=== PATIENT | female | born 1965 | race African-American/Black ===

== ENCOUNTER → 2016-09-15 | Outpatient (REF) | payer OTHER ==
[2016-09-15 12:03] LABS: ALBUMIN 4.1 GM/DL (3.2-5.2); ALBUMIN/GLOBULIN RATIO 0.98 (1.00-1.93); ALKALINE PHOSPHATASE 72 U/L (45-117); ALT/SGPT 42 U/L (12-78); ANION GAP 10 MEQ/L (8-16); AST/SGOT 36 U/L (15-37); BILIRUBIN,TOTAL 0.2 MG/DL (0.2-1.0); BLOOD UREA NITROGEN 17 MG/DL (7-18); CALCIUM LEVEL 9.1 MG/DL (8.5-10.1); CARBON DIOXIDE LEVEL 29 MEQ/L (21-32); CHLORIDE LEVEL 101 MEQ/L (98-107); GLOMERULAR FILTRATION RATE > 60.0 (>51); GLUCOSE, FASTING 118 MG/DL (70-105); POTASSIUM SERUM 3.9 MEQ/L (3.5-5.1); SODIUM LEVEL 140 MEQ/L (136-145); TOTAL PROTEIN 8.3 GM/DL (6.4-8.2)
[2016-09-17 00:08] LABS: %CD3+CD4+CD8+ 0.5 % (Not Estab.); %CD3+CD4+CD8- 20.9 % (Not Estab.); %CD3+CD4-CD8+ 46.1 % (Not Estab.); %CD3+CD4-CD8- 3.6 % (Not Estab.); ABS CD3+CD4+CD8+ 10 /uL (Not Estab.); ABS CD3+CD4+CD8- 418 /uL (Not Estab.); ABS CD3+CD4-CD8+ 922 /uL (Not Estab.); ABS CD3+CD4-CD8- 72 /uL (Not Estab.); CD4/CD8 NYSDOH RATIO 0.45 (Not Estab.); Eosinophils 1 % (.); HCT 38.5 % (34.0-46.6); HGB 12.3 g/dL (11.1-15.9); Monocytes 7 % (.); Neutrophils 48 % (.); WBC 4.6 x10E3/uL (3.4-10.8)
== END ==
LOC: M SFHCPLAZ 10:01
PROVIDERS: ATTEND Internal Medicine Infectious Disease
DX: B20 Human immunodeficiency virus [HIV] disease (principal); E11.9 Type 2 diabetes mellitus without complications

== ENCOUNTER → 2016-12-28 | Outpatient (REF) | payer OTHER ==
[~2016-12-28] MED LIST: DESC1TAB PO; IBUP200C PO; METF500T PO; RALT40TA PO
[2016-12-28 13:27] LABS: ALBUMIN/GLOBULIN RATIO 1.03 (1.00-1.93); ALKALINE PHOSPHATASE 65 U/L (45-117); ALT/SGPT 22 U/L (12-78); ANION GAP 5 MEQ/L (8-16); AST/SGOT 28 U/L (15-37); BILIRUBIN,TOTAL 0.3 MG/DL (0.2-1.0); BLOOD UREA NITROGEN 16 MG/DL (7-18); CALCIUM LEVEL 8.4 MG/DL (8.5-10.1); CARBON DIOXIDE LEVEL 30 MEQ/L (21-32); CHLORIDE LEVEL 104 MEQ/L (98-107); CREATININE FOR GFR 0.66 MG/DL (0.55-1.02); GLOMERULAR FILTRATION RATE > 60.0 (>51); GLUCOSE, FASTING 115 MG/DL (70-105); SODIUM LEVEL 139 MEQ/L (136-145); TOTAL PROTEIN 7.9 GM/DL (6.4-8.2)
[2016-12-30 00:07] LABS: %CD3+CD4+CD8+ 0.9 % (Not Estab.); %CD3+CD4+CD8- 24.7 % (Not Estab.); %CD3+CD4-CD8+ 39.5 % (Not Estab.); %CD3+CD4-CD8- 2.7 % (Not Estab.); ABS CD3+CD4+CD8+ 13 /uL (Not Estab.); ABS CD3+CD4+CD8- 346 /uL (Not Estab.); ABS CD3+CD4-CD8+ 553 /uL (Not Estab.); ABS CD3+CD4-CD8- 38 /uL (Not Estab.); CD4/CD8 NYSDOH RATIO 0.63 (Not Estab.); Eosinophils 1 % (.); HCT 36.5 % (34.0-46.6); HGB 12.5 g/dL (11.1-15.9); Monocytes 6 % (.); Neutrophils 62 % (.); WBC 4.6 x10E3/uL (3.4-10.8)
== END ==
LOC: M LABDRAW1 12:42
PROVIDERS: ATTEND Internal Medicine Infectious Disease
DX: E11.9 Type 2 diabetes mellitus without complications (principal); B20 Human immunodeficiency virus [HIV] disease

== ENCOUNTER 2017-01-06 05:52 | Day surgery (SDC) | payer OTHER ==
[~2017-01-06] VITALS: Ht 157.5 cm; Wt 60.8 kg
[2017-01-06] MEDS ORDERED: LR 1,000 ML IV SCH ×3 (06:00→11:30)
[2017-01-06 06:48] LABS: CONTROL LINE HCG INT CTR LINE PRESENT
[2017-01-06] MEDS ORDERED: BUPIVACAINE HCL 0.25% 30 ML VIAL As Ordered ONE (07:13)
[2017-01-06] MEDS ORDERED: METHYLENE BLUE 0.5% (5MG/ML) 10 ML AMP (PROVAYBLUE)(Q9968 PER 1MG) As Ordered ONE (07:13)
[2017-01-06] MEDS ORDERED: fentaNYL 250 MCG/5 ML INJECTION (J3010) As Ordered ONE (08:02)
[2017-01-06] MEDS ORDERED: MIDAZOLAM INJ 2 MG/2 ML VIAL (J2250) As Ordered ONE (08:02)
[2017-01-06] MEDS ORDERED: METOCLOPRAMIDE INJ 10MG/2ML VIAL (J2765) As Ordered ONE (08:02)
[2017-01-06] MEDS ORDERED: LIDOCAINE 2% INJ 100 MG/5 ML SDV (FOR ANES.) As Ordered ONE (08:03)
[2017-01-06] MEDS ORDERED: ROCURONIUM BROMIDE 50 MG/5 ML VIAL As Ordered ONE (08:03)
[2017-01-06] MEDS ORDERED: PHENYLephrine HCL 500 MCG/5 ML (100MCG/ML) SYRINGE (J2370) As Ordered ONE (08:03)
[2017-01-06] MEDS ORDERED: GLYCOPYRROLATE INJ 0.2 MG/ML 2 ML VIAL As Ordered ONE ×2 (08:04→08:05)
[2017-01-06] MEDS ORDERED: PROPOFOL 200 MG/20 ML VIAL As Ordered ONE (08:04)
[2017-01-06] MEDS ORDERED: NEOSTIGMINE 1MG/ML 5 ML SYRINGE (J2710) As Ordered ONE (08:04)
[2017-01-06] MEDS ORDERED: KETOROLAC 60 MG/2 ML VIAL (J1885) As Ordered ONE (08:05)
[2017-01-06] MEDS ORDERED: ONDANSETRON 4MG/2ML VIAL (J2405) As Ordered ONE (08:05)
[2017-01-06] MEDS ORDERED: HYDROmorphone HCL 2 MG/ML 1ML VIAL (J1170) As Ordered ONE (08:10)
[2017-01-06] MEDS: DESCOVY PO SCH (09:00)
[2017-01-06] MEDS ORDERED: PERCOCET 5MG/325MG TAB PO PRN ×3 (11:15→11:30)
[2017-01-06] MEDS ORDERED: MEPERIDINE INJ 25 MG/ML VIAL (J2175) IV PRN (11:15)
[2017-01-06] MEDS ORDERED: KETOROLAC 30 MG/ML VIAL (J1885) IV PRN (11:15)
[2017-01-06] MEDS ORDERED: fentaNYL 100 MCG/2 ML INJECTION (J3010) IV PRN (11:15)
[2017-01-06] MEDS ORDERED: METOCLOPRAMIDE INJ 10MG/2ML VIAL (J2765) IV PRN (11:15)
[2017-01-06] MEDS ORDERED: ONDANSETRON 4MG/2ML VIAL (J2405) IV PRN (11:15)
[2017-01-06] MEDS ORDERED: HYDROmorphone HCL 1 MG/ML SYRINGE (J1170) IV PRN (11:15)
[2017-01-06] MEDS ORDERED: diphenhydrAMINE INJ 50MG/ML VIAL (J1200) IV PRN (11:15)
[2017-01-06] MEDS ORDERED: zolPIDEM TARTRATE 10MG TAB PO PRN (11:30)
[2017-01-06] MEDS ORDERED: MORPHINE 4 MG/ML 1ML SYRINGE IV PRN (11:30)
[2017-01-06] MEDS ORDERED: PROMETHAZINE INJ 25 MG/ML VIAL (J2550) IV PRN (11:30)
[2017-01-06 13:30] VITALS: BP 144/80
[2017-01-06 14:00] VITALS: BP 130/76
[2017-01-06] MEDS: KETOROLAC 30 MG/ML VIAL (J1885) IV SCH ×2 (14:19→20:53)
[2017-01-06 15:00] VITALS: BP 137/75
[2017-01-06 16:00] VITALS: BP 149/75
[2017-01-06 18:00] VITALS: BP 146/87
[2017-01-06] MEDS: metFORMIN (GLUCOPHAGE) 500 MG TAB PO SCH (18:12)
[2017-01-06] MEDS: RALTEGRAVIR 400 MG TAB (ISENTRESS) PO SCH (20:53)
[2017-01-06] MEDS ORDERED: RALTEGRAVIR 400 MG TAB (ISENTRESS) PO ONE (21:00)
[2017-01-06 22:00] VITALS: BP 137/77
[2017-01-07 02:00] VITALS: BP 110/63
[2017-01-07] MEDS: KETOROLAC 30 MG/ML VIAL (J1885) IV SCH ×2 (02:24→08:14)
[2017-01-07 06:00] VITALS: BP 109/58
[2017-01-07 06:08] LABS: MEAN CORPUSCULAR HEMOGLOBIN 31.4 pg (27.0-33.0); MEAN CORPUSCULAR HGB CONC 34.1 g/dl (32.0-36.5); RED CELL DISTRIBUTION WIDTH 13.1 % (11.5-14.5); WHITE BLOOD COUNT 5.1 K/mm3 (4.0-10.0)
[2017-01-07] MEDS: RALTEGRAVIR 400 MG TAB (ISENTRESS) PO SCH (08:13)
[2017-01-07] MEDS: metFORMIN (GLUCOPHAGE) 500 MG TAB PO SCH (08:13)
[2017-01-07] MEDS: DESCOVY PO SCH (08:14)
[2017-01-07] MEDS ORDERED: PERCOCET PO (08:16)
--- NOTE | 2017-01-07 08:43 | RO ---
DATE OF PROCEDURE: 01/06/2017 PREOPERATIVE DIAGNOSIS: Persistent carcinoma in situ. POSTOPERATIVE DIAGNOSIS: Persistent carcinoma in situ. PROCEDURES PERFORMED: 1. Robotic assisted laparoscopic hysterectomy. 2. Bilateral salpingectomy. 3. Cystoscopy. SURGEON: Yolanda Conti MD CASHIER S[employer]ICE GASOLINE: Tristian Mariano DO ANESTHESIA: General endotracheal anesthesia. INTRAVENOUS FLUIDS: 2000 mL of lactated Ringer solution. SPECIMENS: Uterus, cervix, bilateral adnexa. PREOPERATIVE ANTIBIOTICS: 2 grams of Ancef. OPERATIVE FINDINGS: Patient with atrophic appearing uterus and bilateral adnexa. The cervix flushed to vagina with the posterior aspect of the vagina adhered to over the lower segment of the cervix. CYSTOSCOPIC FINDINGS: Revealed bilateral urethral efflux. No evidence of trauma to the bladder or foreign bodies identified. URINE OUTPUT: 350 mL. DESCRIPTION OF OPERATION: After informed consent was obtained and written content was reviewed, the patient was brought to the operating room where general endotracheal anesthesia was obtained. She was then placed in lithotomy position , was prepped and draped in a normal sterile fashion. A time-out in the operating room was then performed identifying the patient, the procedure to be performed, as well as drug allergies. A speculum was then placed revealing the cervix. The anterior aspect of the cervix was grasped and the posterior vagina was dissected off the lower aspect of the cervix revealing the cervical os. The cervical os was then sequentially dilated. A small VCare uterine manipulator was then advanced through the cervical os for means to manipulate the uterus. At which time, it was noted that there was a perforation of the uterus. The cervical cap as well as vaginal sleeve was advanced down to the vagina. Instruments were removed from patient's vagina. Basurto catheter was then placed and set to gravity. Gloves were changed and attention was turned to the patient's abdomen, where a Veress needle was placed in umbilicus. A pneumoperitoneum was then obtained with CO2 gas. The supraumbilical area was then infused with 0.25% Marcaine. An incision was made in this area and a 12 mm trocar and sleeve was advanced through this incision. The laparoscope was then placed revealing intra-abdominal placement. Two lateral ports left and to the right of the umbilicus were placed. Each of these were infused with 0.25% Marcaine. 8 mm trocar and sleeves were advanced through each one of these incisions under direct visualization. A fourth trocar was placed to left side of the patient's abdomen. This area was also infused with 0.25% Marcaine. An incision was made in this area and another 8 mm trocar and sleeve was advanced through this incision under direct visualization. Next, da Eloisa was then advanced to the patient's table and was docked utilizing a camera arm and two operative arms. Utilizing da Eloisa equipment with the PK, uterine ovarian ligaments were then cauterized and ligated with good hemostasis noted bilaterally. The round ligaments on both sides were cauterized and ligated with good hemostasis noted. The anterior lip of the broad ligaments were then dissected along the bladder creating a bladder flap. The remainder of the broad ligaments were then cauterized and ligated with good hemostasis noted. The uterine artery was then skeletonized bilaterally and cauterized and ligated with good hemostasis noted. The anterior and posterior colpotomies were made and the uterus was removed vaginally. Surgical sites were inspected and noted to be hemostatic. Next, the bilateral salpingo-oophorectomy was then performed. The left ovary was placed on traction. The infundibulopelvic ligament was then cauterized and ligated with good hemostasis noted, and the specimen was brought out through the vaginal incision. In a similar fashion, the right ovary was placed on traction. The infundibulopelvic ligament was then cauterized and ligated with good hemostasis noted. The specimen was also brought out through the incision. The vaginal cuff was then closed laparoscopically using a #2-0 V-Loc system in a running fashion. The surgical sites were inspected and noted to be hemostatic. The abdomen was irrigated and suctioned. Jeferson was applied over the surgical rubin. Next, cystoscopy was then performed. Basurto catheter was then removed. The cystoscope was advanced to the urethra and cystoscopy was performed revealing normal bladder mucosal and bilateral jets were observed. The bladder was then drained. Gloves were changed. Attention was then turned to the patient's abdomen where all skin incisions were closed with #4-0 Monocryl and was dressed with Dermabond. The patient was then taken out of lithotomy position, was awakened from general anesthesia and taken to recovery in stable condition. Counts were correct. MTDD
--- NOTE | 2017-01-07 12:19 | IPN ---
DATE: 01/06/2017 Evy is doing well postoperatively. She had laparoscopic hysterectomy for cervical intraepithelial neoplasia, stage III. She has a history of HIV, doing well on current medication. She was seen preoperatively for clearance last week. Postoperatively, the patient has no complaints. No nausea or vomiting. No fever or chills. I was asked by the nurse to reorder her HIV medication. PHYSICAL EXAMINATION: HEART: Normal S1, S2. No murmurs. LUNGS: Clear. ABDOMEN: Soft, nontender. EXTREMITIES: No edema. Temperature is 98.7, respirations 16, pulse 76, blood pressure 146/87, oxygen saturation 99% on room air. Glucose postoperative is between 140 and 175. IMPRESSION: 1. Status post robotic hysterectomy, doing well. 2. Non-insulin dependent diabetes. We will restart metformin 500 mg by mouth twice a day. 3. HIV positive, on raltegravir 400 mg by mouth twice a day and Descovy one tablet daily. PLAN Please give her all three HIV medications that she did not take this morning all tonight and then resume her regular schedule. HELLEN
== END 2017-01-07 11:04 | disposition home or self-care (01) ==
LOC: M SDC 05:52 → M MSPAV 13:23 → M SDC 01-07 11:04
PROVIDERS: ATTEND Obstetrics & Gynecology
DX: D06.9 Carcinoma in situ of cervix, unspecified (principal); D25.9 Leiomyoma of uterus, unspecified; B20 Human immunodeficiency virus [HIV] disease; E11.9 Type 2 diabetes mellitus without complications; R76.11 Nonspecific reaction to tuberculin skin test without active tuberculosis; M25.511 Pain in right shoulder; M17.12 Unilateral primary osteoarthritis, left knee; R09.1 Pleurisy; M54.5 Low back pain; N95.2 Postmenopausal atrophic vaginitis; Z79.899 Other long term (current) drug therapy; Z79.84 Long term (current) use of oral hypoglycemic drugs; Z78.0 Asymptomatic menopausal state

== ENCOUNTER → 2017-04-20 | Outpatient (REF) | payer OTHER ==
[~2017-04-20] MED LIST changes: -IBUP200C PO; +IBUP200C10 PO; -METF500T PO; +METF500T13 PO; +PERCOCET PO
[2017-04-20 14:26] LABS: ANION GAP 7 MEQ/L (8-16); BLOOD UREA NITROGEN 24 MG/DL (7-18); CALCIUM LEVEL 8.7 MG/DL (8.5-10.1); CARBON DIOXIDE LEVEL 28 MEQ/L (21-32); CHLORIDE LEVEL 108 MEQ/L (98-107); CHOLESTEROL LEVEL 195 MG/DL (<200); CREATININE FOR GFR 0.91 MG/DL (0.55-1.02); GLOMERULAR FILTRATION RATE > 60.0 (>51); GLUCOSE, FASTING 119 MG/DL (70-105); POTASSIUM SERUM 4.6 MEQ/L (3.5-5.1); SODIUM LEVEL 143 MEQ/L (136-145); TRIGLYCERIDES LEVEL 146 MG/DL (<150)
== END ==
LOC: M SFHCPLAZ 12:13
PROVIDERS: ATTEND Internal Medicine Infectious Disease
DX: E11.9 Type 2 diabetes mellitus without complications (principal)